=== PATIENT | female | born 1990 | race Caucasian/White ===

== ENCOUNTER → 2019-09-12 | Outpatient (CLI) | payer OTHER ==
[2015-12-06 18:30] VITALS: BP 109/65
--- NOTE | 2019-09-12 15:52 | KCIC ---
STUDY: MRI of the right shoulder without contrast INDICATION: Injury to the right shoulder with pain. COMPARISON: None. TECHNIQUE: Multiplanar MR imaging of the right shoulder performed without the use of intravenous or intra-articular contrast. FINDINGS: AC joint: Os acromiale. No significant AC joint arthrosis. No fluid distention of the subacromial subdeltoid bursa. Rotator cuff: Intact. Normal musculature signal and bulk. Labrum: Though no discrete fluid signal tear defect is identified, there are small cystic foci adjacent to the posterior/inferior labrum raising the question of an occult tear at this location with paralabral cyst formation, images 2 and 3 series 8. Long head biceps tendon: Intact and normally located. Cartilage: Intact. Bones: Heterogeneous marrow signal without expected fatty conversion of the humeral epiphysis. No acute fracture. Miscellaneous: No shoulder joint effusion. Scattered axillary lymph nodes which are not pathologically enlarged. Impression: 1. Intact rotator cuff. 2. No labral tear is identified however there are small cystic foci adjacent to the posterior/inferior labrum which could represent paralabral cysts from an occult labral tear. 3. Os acromiale. 4. The humeral epiphysis is only partially fatty marrow compatible with some active red marrow. In a patient of this age there is typically only fatty marrow at this location. Though this may be of no clinical significance it raises the question of red marrow reconversion potentially due to anemia. Consider correlation with laboratory analysis. Electronically signed by: PURVI BELTRAN MD (09/12/2019 3:49 PM) [id number]
== END | disposition home or self-care (01) ==
LOC: KCIC MRI 12:22
PROVIDERS: ATTEND Family Medicine
DX: M25.511 Pain in right shoulder (principal)
CPT/HCPCS: 73221